=== PATIENT | male | born 1995 | race Caucasian/White ===

== ENCOUNTER 2022-02-27 14:26 | Outpatient (CLI) | payer MEDICAID, SELFPAY | END 2022-02-27 14:27 | disposition home or self-care (01) | LOC: AMB 02-28 11:02 | PROVIDERS: Visit Provider Emergency Medicine Emergency Medical Services | DX: F19.239 Other psychoactive substance dependence with withdrawal, unspecified (principal) | CPT/HCPCS: A0425; A0427 ==